=== PATIENT | male | born 1940 | race Caucasian/White ===

== ENCOUNTER → 2020-01-16 | Outpatient (CLI) | payer OTHER, BC | LOC: RAD 09:03 | PROVIDERS: ATTEND Physician Assistant | DX: M47.816 Spondylosis without myelopathy or radiculopathy, lumbar region (principal) ==

== ENCOUNTER → 2020-03-15 | Outpatient (CLI) | payer OTHER, BC ==
[~2020-03-15] MED LIST: ALLOPURINOL 10100 M3 PO; ASA81BEC PO; ATENOLOL 100MG100 M2 PO; CATAPRES0.2 MG PO; DILTIAZEM 24HR300 M2 PO; FISH OIL 1,0001 EAC9 PO; FUROSEMIDE 40 M40 MG PO; GEMFIBROZIL 60600 MG PO; LANTUS SUBQ; LEVOXYL125 MCG PO; LOSARTAN-HCTZ1 EAC3 PO; NOVOLOG100 UNIT/M SUBQ; PRAVACHOL 20 MG20 M1 PO; VITAMIN C1000 MG PO; VITAMIN D350 MCG PO; VITAMIN E400 UNIT PO
== END ==
LOC: LAB 12:26
DX: Z01.812 Encounter for preprocedural laboratory examination (principal); Z20.828 Contact with and (suspected) exposure to other viral communicable diseases

== ENCOUNTER → 2020-03-16 | Outpatient (CLI) | payer OTHER, BC ==
[~2020-03-16] MED LIST changes: +FREESTYLE LIBR1 EAC2 MISCELL; +FREESTYLE LIBR1 EAC3 MISCELL; +HYDROCHLOROTHIA25 M2 PO; +PERCOCET 10-321 EACH PO; +ROBAXIN 750 MG750 MG PO
== END ==
LOC: SJCVCIMAG 10:18 → SJCVC 10:18
PROVIDERS: ATTEND Internal Medicine
DX: I35.1 Nonrheumatic aortic (valve) insufficiency (principal); I10 Essential (primary) hypertension; E78.5 Hyperlipidemia, unspecified; E66.9 Obesity, unspecified; E10.9 Type 1 diabetes mellitus without complications; Z79.899 Other long term (current) drug therapy; Z87.891 Personal history of nicotine dependence

== ENCOUNTER 2020-03-20 09:46 | Inpatient (IN) | payer OTHER, BC ==
[2020-03-15 10:54] LABS: URINE BILIRUBIN NEGATIVE (Negative); URINE BLOOD NEGATIVE (Negative); URINE CLARITY CLEAR; URINE COLOR YELLOW; URINE GLUCOSE-RANDOM* NEGATIVE (Negative); URINE KETONES NEGATIVE (Negative); URINE LEUKOCYTES-REFLEX NEGATIVE (Negative); URINE NITRITE-REFLEX NEGATIVE (Negative); URINE PROTEIN (DIPSTICK) NEGATIVE (Negative); URINE UROBILINOGEN 0.2 E.U./dl (0.2-1.0)
[2020-03-15 11:04] LABS: ABSOLUTE NEUTROPHILS 4.2 thou/uL (1.4-8.2); BASOPHILS 0.9 % (0.0-2.0); EOSINOPHILS 1.5 % (0.0-3.0); HEMATOCRIT 35.7 % (42.0-52.0); LYMPHOCYTES 24.4 % (24.0-44.0); MCH 34.4 pg (26.0-34.0); MCHC 33.6 g/dL (28.0-37.0); MCV 102.2 fL (80.0-100.0); MONOCYTES 4.4 % (1.0-8.0); PLATELET COUNT 307 thou/uL (150-400); POLYS 68.8 % (36.0-66.0); RBC 3.49 mil/uL (4.50-6.00); RDW 14.8 % (10.5-14.5); WBC 6.1 thou/uL (4.0-11.0)
[2020-03-15 11:14] LABS: ALBUMIN 4.4 g/dL (3.4-5.0); CALCIUM 9.4 mg/dL (8.5-10.1); CREATININE 2.7 mg/dL (0.7-1.3); MAGNESIUM 1.8 mg/dL (1.8-2.4); TOTAL BILIRUBIN 0.3 mg/dL (0.2-1.0); TOTAL PROTEIN 7.7 g/dL (6.4-8.2)
[2020-03-15 11:17] LABS: APTT 28.8 Seconds (24.5-32.8); PROTIME 10.3 Seconds (9.3-11.4)
--- NOTE | 2020-03-15 11:22 | EKG ---
[facility] [place] [address] ELECTROCARDIOGRAM REPORT Name: JOJOKIM Room #: PRE IN M.R.#: [id number] Admission: Attend Phys: Parker Campos MD Discharge: Date of : 40 Report #: [id number] THIS REPORT FOR: cc: Amanuel Durbin MD, Paul H. MD Santiago, Patrick MD [facility] ~ THIS REPORT FOR: //name// [facility] Test Date: 2020-03-15 Test Time: 10:52:09 Pat Name: KIM URIBE Department: Room: Gender: Specialist Managers: Paul HINTON : 1940 Requested By: Parker Campos Order Number: [id number] MD: Anjel Resendiz Measurements Intervals Antelope Rate: 78 P: 6 DC: 179 QRS: -3 QRSD: 90 T: 66 QT: 412 QTc: 470 Interpretive Statements Sinus arrhythmia Inferior infarct, old No previous ECG available for comparison Electronically Signed On 03-15-2020 11:22:39 CDT by Anjel Resendiz [email or web address] <ELECTRONICALLY SIGNED> By: Anjel Resendiz MD, FACC 03/15/20 1122 1052 105 Anjel Resendiz MD, FACC /EPI
[2020-03-16 05:12] LABS: GLYCOHEMOGLOBIN (HGB A1C) 7.8 % (4.8-5.6)
[~2020-03-20] VITALS: Ht 170.2 cm; Wt 117.4 kg
[2020-03-29 10:59] VITALS: BP 168/59
[2020-03-29 16:05] VITALS: BP 168/65
[2020-03-29 19:35] VITALS: BP 163/72
--- NOTE | 2020-03-29 19:42 | NUR ---
PATIENT ARRIVED ON UNIT ROOM 445 WITH AT BEDSIDE. HAS DRESSING INTACT TO LOWER BACK. HEMOVAC DRAIN WITH LESS THAN 5 ML IN CONTAINER. IV ACSESS RIGHT WRIST. PT IS CLEAR LIQUID DIET ADVANCE TOLERATED TO DM DIET. HAS TEDS AND SONA SCD'S IN PLACE. LAWN MOWER OPERATOR PUMP STARTED ORDERED. V.S. 97.8 18 65 168/65 O2 SAT = 97 % 2L BLOOD SUGAR TAKEN IN POST OP BEFORE TRANSFER WAS 199 GIVEN INSULIN WEIGHT= 258.8 HEIGHT = 5'7 PT USING URINAL. PLEASANT AND COOPERATIVE WITH CARE.
[2020-03-29 23:44] VITALS: BP 163/77
--- NOTE | 2020-03-30 01:59 | NUR ---
ASSESSED AT START OF SHIFT, PT A&OX4. IV INTACT WITH FLUIDS INFUSING. PT RATES PAIN 01/01. CLINICAL SAFETY SPECIALIST PUMP INTACT. EDUCATED PT ABOUT PUMP AND USAGE. BSG CHECKED 323. PT STATES TAKES 3O UNIT OF GLARGINE AT HOME. CONSULTED BODY MAKER MACHINE SETTER SAFETY INSTRUCTION POLICE OFFICER AND ORDERS RECIEVED. URINAL AT BED SIDE AND PT VOIDS. ON 2L OF O2 AND [place] MONITOR IN PLACE. HEMOVAC DRAIN IN PLACE WITH MINIMAL OUT PUT WILL DC IN THE AM. FAL PREC IN PLACE AND CALL LIGHT IN REACH WILL CONT TO MONITOR.
[2020-03-30 04:03] VITALS: BP 172/67
[2020-03-30 05:05] LABS: ABSOLUTE NEUTROPHILS 12.9 thou/uL (1.4-8.2); BASOPHILS 0.1 % (0.0-2.0); HEMATOCRIT 32.6 % (42.0-52.0); HEMOGLOBIN 10.8 gm/dL (14.0-18.0); LYMPHOCYTES 4.8 % (24.0-44.0); MCH 34.1 pg (26.0-34.0); MCHC 33.2 g/dL (28.0-37.0); MCV 102.9 fL (80.0-100.0); MONOCYTES 5.7 % (1.0-8.0); PLATELET COUNT 302 thou/uL (150-400); POLYS 89.4 % (36.0-66.0); RBC 3.17 mil/uL (4.50-6.00); RDW 14.6 % (10.5-14.5); WBC 14.5 thou/uL (4.0-11.0)
[2020-03-30 05:56] LABS: CALCIUM 9.6 mg/dL (8.5-10.1); CREATININE 2.7 mg/dL (0.7-1.3)
[2020-03-30 07:20] VITALS: BP 185/71
--- NOTE | 2020-03-30 10:01 | NUR ---
Nutirtion: screen for BMI 40.5. Wt up from February admit. Diet advanced this am; c/o nausea from medication reported but pt ate 70%. No albumin, BG 173-306. Meds and med hx reviewed. Pt assessed at low nutrition risk at this time. Rec consult RD if pt desires wt loss education when closer to discharge.
--- NOTE | 2020-03-30 10:16 | NUR ---
Met with patient who admits for stenosis. Patient rec sx yesterday worked with therapy today and plan to work with therapy this afternoon. Resides at home with spouse in independent home. He has 12 steps to basement and reports he hold onto railing. 2 children, dttr lives nearby and son lives in [place]. Uses not assistivve device, cont to drive. PCP Dr Amanuel Durbin. Patient currenlty on oxygen and does not use at home. Patient referred to [facility] guard captain. IF dc over weekend please call [facility] to alert of dc and fax orders\ [facility] [phone] FAX [phone]
--- NOTE | 2020-03-30 11:01 | NUR ---
PT IS AOX4, VSS, PAIN CONTROLLED WITH ORAL PAIN ANALGESIC. PT WORKING WELL WITH PHYSICAL THERAPY. PT EXPERIENCED N/V, GAVE MEDICATION FOR RELIEF. PT CURRENTLY UP TO RECLINER CHAIR. PT ALSO C/O SORE THROAT, DR. HOLCOMB WAS CALLED AND THROAT LOZENGE WAS ORDERED. URINAL AND CALL LIGHT IN REACH. DRESSING ON BACK IS CDI. WILL CONTINUE TO MONITOR.
--- NOTE | 2020-03-30 13:49 | O ---
[facility] [place] [address] [place] [address] OPERATIVE REPORT Name: KIM URIBE Room #: 445-P ADM IN M.R.#: [id number] Admission: 03/29/20 Attend Phys: Parker Campos MD Discharge: Date of : 40 Report #: [id number] THIS REPORT FOR: cc: Amanuel Durbin MD, Paul H. MD Amundson, Glenn M MD ~ CC: Parker Durbin DATE OF SERVICE: 03/29/2020 PREPROCEDURAL DIAGNOSES: L3-L4 and L4-L5 degenerative disk disease, spinal stenosis, L4-L5 foraminal stenosis, L3-L4 herniated nucleus pulposus, spondylosis with radiculopathy, L5-S1 and low back pain. POSTPROCEDURAL DIAGNOSES: L3-L4 and L4-L5 degenerative disk disease, spinal stenosis, L4-L5 foraminal stenosis, L3-L4 herniated nucleus pulposus, spondylosis with radiculopathy, L5-S1 and low back pain. PROCEDURE: Bilateral laminectomy with partial facetectomy and neural foraminotomy of L3, bilateral laminectomy with partial facetectomy and neural foraminotomy of L4, bilateral laminectomy with partial facetectomy and neural foraminotomy of L5, fluoroscopy. SURGEON: Parker Campos MD. FOREIGN LEGAL CONSULTANT SURGEON: Arabella Munoz. ANESTHETIC: General via endotracheal tube. INDICATIONS: The patient has had intractable back and bilateral leg pain in a neurogenic claudicant radicular pattern. The patient's proved refractory to all forms of multimodality conservative managements, requesting we proceed with operative intervention. He understands the risks of surgery to be , DVT, pulmonary embolism, paraplegia, loss of bowel and bladder function, loss of sexual function, possibility of bleeding, bleeding requiring transfusion, transfusion attendant risks of AIDS and hepatitis infection, instability, the need for revision, prolonged hospital stay, dural leak, and spinal headache, and again he requested we proceed. DESCRIPTION OF PROCEDURE: The patient was brought to the operating room and administered general anesthesia via endotracheal tube. Lower extremities were treated with DUNG hose and intermittent compression stockings. He was positioned on the Glen table in the prone position with all bony prominences padded appropriately. Care was taken to ensure the shoulders not abducted more than 90 degrees, the elbows flexed more than 90 degrees and there was no undue pressure [address] [address] OPERATIVE REPORT Name: KIM URIBE Room #: 445-P [facility] IN .R.#: [id number] Admission: 03/29/20 Attend Phys: Parker Campos MD Discharge: Date of : 40 Report #: [id number] on the cubital or carpal canals. The area of the anterior superior iliac spine was well padded to protect the lateral femoral cutaneous nerve. Hips and knees were well padded and there was no pressure on the dorsum of the feet. The patient's low back was defatted with alcohol and visualized under fluoroscopy and the pedicles of L3, L4 and L5 were marked on the patient's back for surgical reference. We then sterilely prepped and draped, infiltrated the skin with 0.5% Marcaine, 1:200,000 epinephrine and sharp dissection was continued down through the skin, the subcutaneous tissues to the level of the deep fascia. The tips of the spinous processes were subperiosteally exposed. The facet capsules were maintained at all levels. We exposed the spine subperiosteally from L3-L5. We then removed the spinous processes of L3, L4 and L5. We then thinned the lamina of L3, L4 and L5 with a high speed drill to its anterior cortex. We then used a micro curette to separate the ligamentum flavum from the undersurface of the lamina of L3 and then resected the lamina. We then resected the ligamentum flavum intervening L3 and L4 and resected the L4 lamina. We resected the upper half of the L5 lamina. Once the central decompression was widened to the lateral recess, we performed partial facetectomies to give a lateral recess decompression and then we performed aggressive neural foraminal decompressions at the L3, L4, and L5 nerve roots. Once this was completed on the right, we turned our attention to the left. We widened the decompression with partial facetectomies and then performed an aggressive neural foraminotomies of the L3, L4 and L5 nerve roots. When complete, all nerve roots probed completely free and the sac was unencumbered. We copiously irrigated with a liter of antibiotic-containing solution. We obtained meticulous hemostasis. We placed a deep drain. We placed a gram of vancomycin. We closed the deep fascial layer with 0 Ethibond in [id number] interrupted fashion. Deep subcu was closed with 0 Vicryl, superficial subcu with 2-0 Vicryl, skin with subcuticular 3-0, dressed with benzoin, Steri-Strips, Xeroform, sterile dressing, sponges and a bioclusive. The patient tolerated the procedure well. There were no technical misadventures. Final blood loss was 150 mL. No specimen. He was physiologically stable throughout and being transported to the recovery room. <ELECTRONICALLY SIGNED> By: Parker Campos MD 03/30/20 1349 1434 [id number] Parker Campos MD /dorina
[2020-03-30 15:55] VITALS: BP 185/71
[2020-03-30 16:45] VITALS: BP 165/55
[2020-03-30 19:47] VITALS: BP 157/45
[2020-03-31 03:57] VITALS: BP 137/49
[2020-03-31 05:26] LABS: ABSOLUTE NEUTROPHILS 10.2 thou/uL (1.4-8.2); BASOPHILS 0.7 % (0.0-2.0); EOSINOPHILS 0.4 % (0.0-3.0); HEMATOCRIT 28.4 % (42.0-52.0); HEMOGLOBIN 9.6 gm/dL (14.0-18.0); LYMPHOCYTES 10.5 % (24.0-44.0); MCH 34.9 pg (26.0-34.0); MCHC 33.7 g/dL (28.0-37.0); MCV 103.6 fL (80.0-100.0); PLATELET COUNT 235 thou/uL (150-400); POLYS 82.4 % (36.0-66.0); RBC 2.74 mil/uL (4.50-6.00); RDW 14.6 % (10.5-14.5); WBC 12.4 thou/uL (4.0-11.0)
--- NOTE | 2020-03-31 05:27 | NUR ---
ASSUMED PT CARE AT 1915. PT IS A&OX4. PT DOES FORGET HIS LIMITATIONS. PT DENIES THAT HE IS IN PAIN. PT DOES GRIMACE AND BRACE HIMSELF WHEN HE IS ON HIS BOTTOM AND WALKING. PT IS NON COMPLIANT, DOES NOT CALL APPROPRIATELY. HOURLY ROUNDING PERFORMED. PT IS RESTING IN THE CHAIR. WILL CONTINUE TO MONITOR.
[2020-03-31 05:31] LABS: CALCIUM 8.7 mg/dL (8.5-10.1); POTASSIUM 4.8 mmol/L (3.5-5.1)
[2020-03-31] MEDS ORDERED: PERCOCET 10-321 EACH PO (09:34)
[2020-03-31] MEDS ORDERED: ROBAXIN 750 MG750 MG PO (09:34)
[2020-03-31] MEDS ORDERED: FREESTYLE LIBR1 EAC2 MISCELL (09:40)
[2020-03-31] MEDS ORDERED: FREESTYLE LIBR1 EAC3 MISCELL (09:40)
[2020-03-31 13:18] VITALS: BP 185/71
--- NOTE | 2020-03-31 14:17 | NUR ---
Assumed care of pt. at 0700. Pt. was calm and cooperative. . Approved discharge if Beth approved. Notes from Beth on 03/31/20 stated discharge was approved if cleared by hospitalist. Pt. cleared approval of PT/OT as well. Pt. given discharge teaching and information. I noticed there was no follow up date with Beth scheduled. I called the given office number. No answering service available. Pt. stated he would call the office on Thursday to set up an appointment. Pt. discharged with and all belongings.
== END 2020-03-31 14:01 | disposition home health service (06) | DRG 518 ==
LOC: PRE 09:46 → TBA 03-29 08:58 → 4S 03-29 08:58 → PRE 03-29 09:28 → 4W 03-29 16:07 → 4S 03-29 16:19
PROVIDERS: Hospitalist
DX: M48.061 Spinal stenosis, lumbar region without neurogenic claudication (principal); N17.0 Acute kidney failure with tubular necrosis; M47.26 Other spondylosis with radiculopathy, lumbar region; M51.36 Other intervertebral disc degeneration, lumbar region; E78.5 Hyperlipidemia, unspecified; E03.9 Hypothyroidism, unspecified; M10.9 Gout, unspecified; K21.9 Gastro-esophageal reflux disease without esophagitis; I25.10 Atherosclerotic heart disease of native coronary artery without angina pectoris; N18.9 Chronic kidney disease, unspecified; E11.22 Type 2 diabetes mellitus with diabetic chronic kidney disease; I12.9 Hypertensive chronic kidney disease with stage 1 through stage 4 chronic kidney disease, or unspecified chronic kidney disease; Z20.828 Contact with and (suspected) exposure to other viral communicable diseases; Z98.42 Cataract extraction status, left eye; Z98.41 Cataract extraction status, right eye; Z79.4 Long term (current) use of insulin; Z87.891 Personal history of nicotine dependence; Z79.82 Long term (current) use of aspirin; Z79.899 Other long term (current) drug therapy
CPT/HCPCS: 10102; 50010; 50101; 50402; 50850; 51412; 51878; 56524; 56529; 62110; 62900; 70005

== ENCOUNTER → 2020-03-20 | Outpatient (CLI) | payer OTHER, BC ==
[~2020-03-20] MED LIST changes: -FREESTYLE LIBR1 EAC2 MISCELL; -FREESTYLE LIBR1 EAC3 MISCELL; -HYDROCHLOROTHIA25 M2 PO; -PERCOCET 10-321 EACH PO; -ROBAXIN 750 MG750 MG PO
== END ==
LOC: SJCVCIMAG 07:09
PROVIDERS: ATTEND Internal Medicine
DX: Z01.818 Encounter for other preprocedural examination (principal); R94.31 Abnormal electrocardiogram [ECG] [EKG]; E11.9 Type 2 diabetes mellitus without complications; R06.00 Dyspnea, unspecified; I10 Essential (primary) hypertension; Z87.891 Personal history of nicotine dependence; Z79.899 Other long term (current) drug therapy

== ENCOUNTER 2020-04-03 17:08 | Inpatient (IN) | payer OTHER, BC ==
[~2020-04-03] VITALS: Ht 172.7 cm; Wt 108.9 kg
[~2020-04-03 17:08] MED LIST changes: +FREESTYLE LIBR1 EAC2 MISCELL; +FREESTYLE LIBR1 EAC3 MISCELL; +PERCOCET 10-321 EACH PO; +ROBAXIN 750 MG750 MG PO
[2020-04-03 17:11] VITALS: BP 131/42
[2020-04-03 18:19] LABS: ABSOLUTE NEUTROPHILS 13.4 thou/uL (1.4-8.2); BASOPHILS 1.3 % (0.0-2.0); EOSINOPHILS 0.5 % (0.0-3.0); HEMATOCRIT 24.1 % (42.0-52.0); HEMOGLOBIN 8.2 gm/dL (14.0-18.0); LYMPHOCYTES 4.1 % (24.0-44.0); MCH 34.3 pg (26.0-34.0); MCHC 33.8 g/dL (28.0-37.0); MCV 101.3 fL (80.0-100.0); MONOCYTES 6.5 % (1.0-8.0); PLATELET COUNT 279 thou/uL (150-400); POLYS 87.6 % (36.0-66.0); RBC 2.38 mil/uL (4.50-6.00); RDW 14.5 % (10.5-14.5); WBC 15.3 thou/uL (4.0-11.0)
[2020-04-03 18:28] LABS: ANION GAP 14 mmol/L (7-16); BUN 132 mg/dL (7-18); CALCIUM 9.3 mg/dL (8.5-10.1); CHLORIDE 97 mmol/L (98-107); CO2 21 mmol/L (21-32); CREATININE 4.1 mg/dL (0.7-1.3); GLUCOSE 114 mg/dL (74-106); POTASSIUM 3.9 mmol/L (3.5-5.1); SODIUM 132 mmol/L (136-145)
[2020-04-03 18:28] LABS: URINE BILIRUBIN NEGATIVE (Negative); URINE BLOOD NEGATIVE (Negative); URINE CLARITY CLEAR; URINE COLOR YELLOW; URINE GLUCOSE-RANDOM* NEGATIVE (Negative); URINE KETONES NEGATIVE (Negative); URINE LEUKOCYTES-REFLEX NEGATIVE (Negative); URINE NITRITE-REFLEX NEGATIVE (Negative); URINE PROTEIN (DIPSTICK) NEGATIVE (Negative); URINE UROBILINOGEN 0.2 E.U./dl (0.2-1.0)
[2020-04-03 18:35] LABS: ALBUMIN 2.7 g/dL (3.4-5.0); SGOT 24 U/L (15-37); SGPT < 6 U/L (30-65); TOTAL BILIRUBIN 0.4 mg/dL (0.2-1.0); TOTAL PROTEIN 7.2 g/dL (6.4-8.2)
[2020-04-03 20:00] VITALS: BP 139/59
[2020-04-03 22:00] VITALS: BP 120/37; BP 150/52
[2020-04-03 22:08] VITALS: BP 120/37
--- NOTE | 2020-04-03 22:13 | NUR ---
ATTEMPTED TO CALL REPORT X 2 WITH NO ANSWER.
[2020-04-04 03:15] VITALS: BP 159/59
--- NOTE | 2020-04-04 03:54 | NUR ---
PT ARRIVED ON UNIT FROM ER AT 2330. ADMITTED FROM HOME WITH COMPRESSION FRACTURE AND UTI. DENIES NEED FOR PAIN MEDICATION. VOIDING PER URINAL WITH SOME INCONTINENCE. RESTING COMFORTABLY. NO NEEDS VOICED. CALL LIGHT WITHIN REACH. FREQUENT OBSERVATION.
[2020-04-04 03:55] LABS: HEMATOCRIT 23.3 % (42.0-52.0); HEMOGLOBIN 8.1 gm/dL (14.0-18.0); MCH 35.7 pg (26.0-34.0); MCHC 34.7 g/dL (28.0-37.0); MCV 102.7 fL (80.0-100.0); RBC 2.27 mil/uL (4.50-6.00); RDW 15.1 % (10.5-14.5); WBC 14.7 thou/uL (4.0-11.0)
[2020-04-04 04:25] LABS: CREATININE 4.3 mg/dL (0.7-1.3); POTASSIUM 4.3 mmol/L (3.5-5.1)
[2020-04-04 07:40] VITALS: BP 142/44
--- NOTE | 2020-04-04 10:04 | NUR ---
ASSESSMENT: CM REVIEWED CHART AND SPOKE WITH PT. PT IS HERE DUE TO INCREASED BACK PAIN AND INABILITY FOR HIM TO PERFORM ADLS. PT HAD LAMINECTOMY COMPLETED ON Mar AND DISCHARGED HOME [facility]. CM VERIFIED [facility] THAT HE IS IN SERVICES WITH THEM. PT LIVES IN A HOME WITH HIS . PT HAS ONE STEP TO ENTER THE HOME AND 12 STEPS WITH A RAILING TO THEIR BASEMENT. PT REPORTS HAVING A CANE AND WALKER TO ASSIST WITH AMBULATION. PT HAS TWO CHILDREN, HIS DAUGHTER LIVES NEARBY AND IS SUPPORTIVE. PT IS TO GET AN MRI TODAY. CM FAXED UPDATED CLINICAL TO [facility] AND WILL CONTINUE TO FOLLOW.
[2020-04-04 15:40] VITALS: BP 156/63
--- NOTE | 2020-04-04 17:54 | NUR ---
PATIENT WENT TO HAVE MRI AND US RESULTS CALLED TO .
--- NOTE | 2020-04-04 19:23 | NUR ---
PATIENT IS RESTING IN BED WAS UP TO BEDSIDE CHAIR TOOK 4 PEOPLE TO GET HI IN W/C TO HAVE MRI AND ULTRASOUND. [facility] TO ASSESS FOR REHAB UNIT. PT DIET CHANGED TO DIABETIC
[2020-04-04 20:45] VITALS: BP 145/68
[2020-04-05 03:20] VITALS: BP 160/78
--- NOTE | 2020-04-05 06:05 | NUR ---
PT IS ALERT AND ORIENTED WITH FORGETFULNESS. HE REQUIRES ALOT OF HELP TO REPOSITION IN BED. DRSG TO LOWER BACK IS C/D/I. NO EDEMA. HE HAS A CONGESTED COUGH WITH SOME THICK YELL0W SPUTUM. AFEBRILE. HE IS ON 021L/NC WITH SATS >92%. PT IS INCONTINENT AT TIMES AND WILL ALSO USE URINAL WITH HELP. UA COLLECTED. C/O HEADACHE, GIVEN TYLENOL. CALL LIGHT WITHIN REACH.
[2020-04-05 06:09] LABS: HEMATOCRIT 24.1 % (42.0-52.0); MCH 34.4 pg (26.0-34.0); MCHC 33.4 g/dL (28.0-37.0); MCV 103.1 fL (80.0-100.0); RBC 2.33 mil/uL (4.50-6.00); RDW 14.6 % (10.5-14.5); WBC 12.2 thou/uL (4.0-11.0)
[2020-04-05 06:29] LABS: ALBUMIN 2.3 g/dL (3.4-5.0); CALCIUM 9.2 mg/dL (8.5-10.1); PHOSPHORUS 3.5 mg/dL (2.5-4.9); POTASSIUM 3.6 mmol/L (3.5-5.1)
[2020-04-05 07:01] LABS: CREATININE 3.2 mg/dL (0.7-1.3)
[2020-04-05 07:50] VITALS: BP 157/55
--- NOTE | 2020-04-05 09:09 | NUR ---
PATIENT RESTING IN BED WATCHING THE NEWS. TOOK AM MED AND BLOOD SUGAR WAS CHECKED AND S/S INSULIN PER MODERATE SCALE, PT W/O PAIN OR RESP DISTRESS. HAS DC ORDER THAT WAS PUT IN BY DR ROWE.
--- NOTE | 2020-04-05 14:17 | NUR ---
ON-GOING ASSESSMENT: CM REVIEWED CHART AND MET WITH PATIENT AND SPOKE WITH HIS . CM DISCUSSED 5N CONSULT AND POSSIBLE NEED FOR ACUTE REHAB. PT REPORTS THAT HE PREFERS TO GO TO [facility] STATING HIS HAS ALREADY CONTACTED THEM. CM SPOKE WITH TO DISCUSS AND SHE REPORTS SHE HAD A FAMILY MEMBER THERE AND IS MORE COMFORTABLE WITH [facility] AND PREFERS A REFERRAL THERE. CM FAXED REFERRAL TO [facility] AND AWAITING FURTHER INPUT AT THIS TIME. PT NEEDED TO WORK WITH PT/OT TODAY. CM FAXED PT/OT [facility] AND AWAITING A RESPONSE AT THIS TIME.
[2020-04-05 19:00] VITALS: BP 177/70
--- NOTE | 2020-04-06 03:48 | NUR ---
PT WAS OBSERVED LYING IN BED WITH HIS EYES CLOSED AT THE START OF SHIFT.COMPLETE BED CHANGE DONE AFTER PT ACCIDENTALLY POURED WATER ON HIMSELF.PT REPOSITIONED WHILE IN BED.PT MOANS WITH EVERY MOVEMENT.PAIN MED GIVEN PER PT'S REQUEST.DRSG ON HIS BACK INTACT,BRUISING NOTED ON HIS LOWER BACK.PT SLEPING AT THIS TIME.PT PROGRESSING SLOWLY TOWARDS DC GOALS.CALL LIGHT WITHIN REACH.
[2020-04-06 04:01] VITALS: BP 183/77
[2020-04-06 06:15] LABS: HEMATOCRIT 25.1 % (42.0-52.0); HEMOGLOBIN 8.3 gm/dL (14.0-18.0); MCH 34.2 pg (26.0-34.0); MCHC 33.2 g/dL (28.0-37.0); MCV 103.1 fL (80.0-100.0); RBC 2.43 mil/uL (4.50-6.00); RDW 14.3 % (10.5-14.5); WBC 12.6 thou/uL (4.0-11.0)
[2020-04-06 06:48] LABS: ALBUMIN 2.1 g/dL (3.4-5.0); CALCIUM 9.2 mg/dL (8.5-10.1); CREATININE 2.5 mg/dL (0.7-1.3); PHOSPHORUS 3.4 mg/dL (2.5-4.9); POTASSIUM 3.6 mmol/L (3.5-5.1)
[2020-04-06 07:20] VITALS: BP 173/60
--- NOTE | 2020-04-06 10:53 | HC ---
[facility] [place] [address] [place] [address] CONSULTATION Name: KIM URIBE Room #: 439- ADM IN M.R.#: [id number] Admission: 04/03/20 Attend Phys: Levi Ivory MD Discharge: Date of : 40 Report #: [id number] THIS REPORT FOR: cc: Amanuel Durbin MD, Paul H. MD Al-Mubaslat, Ahmad MD ~ DATE OF SERVICE: 04/05/2020 ENDOCRINE CONSULTATION NOTE CONSULTING PHYSICIAN: Dr. Ivory. REASON FOR CONSULTATION: Uncontrolled type 2 diabetes mellitus. HISTORY OF PRESENT ILLNESS: This is a 79-year-old male patient whose medical background is significant for multiple medical issues including type 2 diabetes mellitus, hypertension, hyperlipidemia as well as hypothyroidism. The patient has been dealing with degenerative disk disease as well as spinal stenosis and had undergone a lumbar laminectomy and decompression of L3 through L5 on the 7th of this month. However, the patient has been dealing with worsening back pain since his discharge and presented to the ER with uncontrolled back pain, which prompted his admission for pain control and management. The patient notes that he has been a diabetic for several years. His most recent antidiabetic regimen consisted of Lantus insulin 15 units q.p.m. in addition to NovoLog insulin 30 units with meals, averaging 3-4 injections per day. The patient notes that he is able to maintain adequate glycemic control for the most part on this regimen with only occasional typically moderate hypoglycemia. He is not aware of difficulties pertaining to diabetic retinopathy or neuropathy, but he does have renal insufficiency for which he is under the active monitoring of his trouble locator test desk, Dr. Ham. He does not have a history of coronary artery disease. Also, he has been hypothyroid for many years and is currently maintained on levothyroxine 125 mcg daily, which has been a stable dose for him. REVIEW OF SYSTEMS: CONSTITUTIONAL: Fatigue, tiredness. No fever, chills or body weight changes. HEENT: Negative for sore throat, sinus pain or ear drainage. PULMONARY: Noted for occasional shortness of breath and cough, but no hemoptysis. CARDIAC: Negative for chest pain, palpitations, syncope or presyncope. [facility] [address] [place] [address] CONSULTATION Name: KIM URIBE Room #: 439-P [facility] IN .R.#: [id number] Admission: 04/03/20 Attend Phys: Levi Ivory MD Discharge: Date of : 40 Report #: [id number] GASTROINTESTINAL: Negative for abdominal pain, nausea, vomiting or changes in bowel movement frequency. NEUROLOGY: Noted for back pain. No loss of consciousness, seizure activity. Otherwise, his review of systems is noncontributory other than those mentioned in HPI. PAST MEDICAL HISTORY: Type 2 diabetes mellitus, hypertension, hyperlipidemia, gout, hypothyroidism, renal insufficiency, spinal stenosis, degenerative disk disease. PAST SURGICAL HISTORY: Bilateral cataract surgery, lumbar laminectomy and decompression L3 through L5. OUTPATIENT MEDICATIONS: Lantus insulin 15 units at bedtime, NovoLog insulin 30 units with meals 3-4 times a day, Robaxin 750 mg t.i.d., losartan/hydrochlorothiazide 100/25 mg daily, diltiazem 300 mg daily, clonidine 0.4 mg daily, atenolol 100 mg daily, gemfibrozil 1200 mg daily, Pravachol 20 mg daily, furosemide 20 mg daily, coated aspirin 81 mg daily, allopurinol 100 mg daily, levothyroxine 125 mcg daily. ALLERGIES: CODEINE. FAMILY HISTORY: Noncontributory. SOCIAL HISTORY: He denies the use of tobacco, alcohol or illicit drugs. PHYSICAL EXAMINATION: GENERAL: Pleasant male patient who appears lethargic, sleepy, a bit in pain, but not in distress. VITAL SIGNS: Blood pressure is 157/55 mmHg, heart rate is 70 beats per minute, respirations 16 per minute, temperature 36.8 degrees Celsius. CONSTITUTIONAL: He is lying in bed, appears a bit uncomfortable and lethargic, but not in distress. HEENT: Anicteric sclerae. Intact extraocular motions. NECK: Supple, without JVD, carotid bruits or lymphadenopathy. I do not appreciate thyromegaly. CHEST: Noted for moderate air entry bilaterally with scattered rales. No wheezes or crackles. HEART: Regular rate and rhythm without murmurs or gallops. ABDOMEN: Soft, lax. No guarding. Active bowel sounds. EXTREMITIES: Lower extremity exam is noted for trace ankle edema bilaterally. NEUROLOGIC: Awake, lethargic, limited motion due to pain. PSYCHIATRIC: Pleasant, interactive. Normal mood and affect. [address] [address] CONSULTATION Name: KIM URIBE Room #: 439-P [facility] IN M.R.#: [id number] Admission: 04/03/20 Attend Phys: Levi Ivory MD Discharge: Date of : 40 Report #: [id number] LABORATORY RESULTS: Blood glucose values were reviewed since his presentation and these have consistently been over 250 mg/dL and occasionally over 300 mg/dL. Otherwise, sodium 134, potassium 3.6, chloride 98, CO2 of 20, anion gap 16, BUN 124, creatinine 3.2, AST 24, total bilirubin 0.4, calcium 9.2, phosphorus 3.5, magnesium 2.9, uric acid 9, alkaline phosphatase 64, total protein 7.2, albumin 2.3, EGFR 19. Free T4 of 1.1. INR 1.0. White blood count 12.2, hemoglobin 8, hematocrit 24.1, platelets 281. Hemoglobin A1c 7.8%. TSH 0.063. ASSESSMENT AND PLAN: 1. Type 2 diabetes mellitus. The patient is on an aggressive multiple daily injection regimen of insulin at home, which he is accustomed to and has achieved adequate control with as per his report. His hemoglobin A1c reflects a reasonable degree of control given his age and comorbidities. He has been severely hyperglycemic since his admission. Having said that, I will move to establish a basal bolus regimen in the form of Lantus insulin 15 units daily as well as Humalog insulin 8 units with meals while supporting him with Humalog supplemental scale low intensity. Blood glucose monitoring will commence a.c. and at bedtime and further therapeutic changes will be made accordingly. 2. Hypothyroidism. The patient's level of free T4 suggests an adequate level of control. He is to continue with the current dose of levothyroxine. 3. Hypertension. The patient's level of blood pressure control has fluctuated, likely due to his active difficulties with pain. Antihypertensive regimen adjustments are as per the primary hospital team. 4. Renal insufficiency. Baseline, advanced. I certainly appreciate this consultation by Dr. Ivory. <ELECTRONICALLY SIGNED> By: Mauricio Dixon MD 04/06/20 1053 [id number] MD Sukhdeep Jacksonnt
[2020-04-06] MEDS ORDERED: HYDROCHLOROTHIA25 M2 PO (11:35)
[2020-04-06 11:58] VITALS: BP 173/60
--- NOTE | 2020-04-06 12:49 | NUR ---
assessment: CM REVIEWED CHART AND SPOKE WITH ATTENDING. PT IS MEDICALLY STABLE TO DISCHARGE TODAY TO ACUTE REHAB (PT AND CHOSE [facility]). CM NOTIFIED [facility] AT [facility] WHO REPORTS THEY CAN ACCEPT HIM TODAY. CM ORDERED CHART COPY. CM FAXED D/C PAPERWORK TO [facility] ALONG WITH NEGATIVE COVID TEST AND CONFIRMED THEY RECEIVED IT. CM UPDATED PT AND AND TRANSPORTATION HAS BEEN ARRANGED FOR 1530. BEDSIDE RN HAS THE NUMBER FOR REPORT [phone]. PT REPORTS NO FURTHER QUESTIONS FOR CM. CASE CLOSED.
--- NOTE | 2020-04-06 16:56 | NUR ---
ASSUMED CARE AT 0700. PT IS A&O X4. PT NEEDS MAX ASSIST WHEN HELPING PT TO THE BATHROOM. PT HAD HIGH BLOOD PRESSURE AND CALLED DOCTOR AND WAS GIVEN BP MEDICATION TO HELP DECREASE BP. ABD DRESSING IS INTACT. THERE ARE BRUISES ON PT LOWER BACK.PT IS TOLERATING O2 AT 1.0 WITH 98%. PT WAS AROUND 200 BG ALL DAY AND WAS GIVEN INSULIN. R. AC IV IS INTACT WITH NO SWELLING OR DRESSING. PT HAD A POOR APPETITE TODAY. PT DENIES ANY PAIN, SOA, N/V. PT WAS D/C AROUND 1730. PT WAS TRANSPORTED BY [facility]. VSS EXCEPT BP BUT BP MEDICATION WAS GIVEN. CALL LIGHT WITHIN REACH. FALL PRECAUTION.
--- NOTE | 2020-04-10 08:21 | HC ---
[facility] [place] [address] CONSULTATION Name: KIM URIBE Room #: 439-[facility] M.R.#: [id number] Admission: 04/03/20 Attend Phys: Levi Ivory MD Discharge: 04/06/20 Date of : 40 Report #: [id number] THIS REPORT FOR: cc: Amanuel Durbin MD, Paul H. MD Al-Ashley,Sancho Love MD ~ DATE OF SERVICE: 04/04/2020 REASON FOR CONSULTATION: Elevated creatinine, acute kidney injury REASON FOR PRESENTATION: Inability to ambulate, increased low back pain. HISTORY OF PRESENT ILLNESS: This is a 79-year-old who had lumbar laminectomy and decompression of L3, L4, L5, back in 03/31/2020. He went home; however, he was unable to do any of his daily activities. He reported to nausea, vomiting, decreased oral intake. His back pain had been progressively worsening and he had significant weakness of bilateral lower extremity, complete lack of energy. He presented for further evaluation and management and was found to have an elevated creatinine at 4.3. I would note that the patient's creatinine back on 03/30/2020 was 2.7. The patient's creatinine back in 02/2020 was 2.7. The patient denies any prior knowledge of kidney problems. In terms of chronic comorbid conditions, it does look like that the patient has history of diabetes mellitus and hypertension along with hyperlipidemia. He is maintained on multiple blood pressure medications including beta richy, calcium channel richy, a combination of losartan and hydrochlorothiazide. He tells me that he has never seen a kidney doctor. UA from yesterday was nonrevealing. The patient denies any issues with urination. Because of the worsening of the patient's renal function, primary team had asked me to assist with the management of his acute kidney injury. PAST MEDICAL HISTORY: Extensive and includes the followin. Diabetes mellitus. 2. Hypertension. 3. Chronic kidney disease. 4. Bilateral cataract extraction. 5. Recent lumbar laminectomy. SOCIAL HISTORY: Denies drug or alcohol abuse. Lives with his . FAMILY HISTORY: Hypertension. ALLERGIES: None. MEDICATIONS AT HOME: [facility] [address] [place] [address] CONSULTATION Name: KIM URIBE Room #: 439-[facility] IN [facility].#: [id number] Admission: 04/03/20 Attend Phys: Levi Ivory MD Discharge: 04/06/20 Date of : 40 Report #: [id number] 1. Diltiazem. 2. Aspirin. 3. Insulin. 4. Lantus. 5. Levothyroxine. 6. Clonidine. 7. Atenolol. 8. Losartan/hydrochlorothiazide. REVIEW OF SYSTEMS: GENERAL: Significant for weakness and lethargy. CARDIOVASCULAR: No chest pain or palpitation. PULMONARY: No cough or hemoptysis. GASTROINTESTINAL: Significant for decreased oral intake, nausea and vomiting. GENITOURINARY: No frequency, no urgency. NEUROLOGICAL: As per the history of present illness. MUSCULOSKELETAL: As per the history of present illness. PHYSICAL EXAMINATION: VITAL SIGNS: Temperature 36.9, pulse rate 81, and blood pressure 159/59. HEAD AND NECK: No jugular venous distention. CHEST: No crackles. CARDIOVASCULAR: No rub. ABDOMEN: Soft, nontender. LOWER EXTREMITIES: Trace edema. NEUROLOGICAL: Significant weakness of bilateral lower extremities. LABORATORY VALUES: Sodium 135, potassium 4.3, chloride 97, carbon dioxide 17, BUN 147, creatinine 4.3. IMPRESSION AND PLAN: 1. Acute kidney injury with unknown source. Appropriate laboratory investigation will be initiated. Rule out obstruction. 2. Bladder scan. 3. Ultrasound of both kidneys. 4. Hold all blood pressure medications. 5. Start IV fluid. 6. Follow daily electrolytes. 7. Follow urine output. [address] [address] CONSULTATION Name: KIM URIBE Room #: 439-P [facility] IN M.R.#: [id number] Admission: 04/03/20 Attend Phys: Levi Ivory MD Discharge: 04/06/20 Date of : 40 Report #: [id number] 8. We will continue to follow during his hospital stay and implement further treatment plans based on the initial diagnostic workup. <ELECTRONICALLY SIGNED> By: Sancho Dave MD 04/10/20 0821 2049 Sancho Dave MD /dorina
== END 2020-04-06 17:12 | DRG 682 ==
LOC: ER 17:08 → EROBS 21:55 → 4S 21:55
PROVIDERS: Emergency Medicine; Hospitalist; Nurse Practitioner Family; ADMIT Internal Medicine; ATTEND Internal Medicine
DX: N17.0 Acute kidney failure with tubular necrosis (principal); E43 Unspecified severe protein-calorie malnutrition; Z20.828 Contact with and (suspected) exposure to other viral communicable diseases; D72.829 Elevated white blood cell count, unspecified; E78.00 Pure hypercholesterolemia, unspecified; M10.9 Gout, unspecified; E03.9 Hypothyroidism, unspecified; N18.9 Chronic kidney disease, unspecified; K59.00 Constipation, unspecified; I12.9 Hypertensive chronic kidney disease with stage 1 through stage 4 chronic kidney disease, or unspecified chronic kidney disease; D53.9 Nutritional anemia, unspecified; E55.9 Vitamin D deficiency, unspecified; E11.22 Type 2 diabetes mellitus with diabetic chronic kidney disease; G47.00 Insomnia, unspecified; Z79.4 Long term (current) use of insulin; Z98.42 Cataract extraction status, left eye; Z98.41 Cataract extraction status, right eye; Z87.891 Personal history of nicotine dependence; Z82.49 Family history of ischemic heart disease and other diseases of the circulatory system; Z88.6 Allergy status to analgesic agent; Z23 Encounter for immunization; Z79.899 Other long term (current) drug therapy
CPT/HCPCS: 10102